=== PATIENT | male | born 1980 | race Hispanic/Latino ===

== ENCOUNTER 2023-06-28 10:07 | Emergency (ER) | payer SELFPAY ==
[~2023-06-28] VITALS: Ht 157.5 cm; Wt 57.0 kg
[2023-06-28 10:16] VITALS: BP 135/83
[2023-06-28 10:30] VITALS: BP 120/76
[2023-06-28] MEDS ORDERED: BACTRIM DS1 TAB PO (10:40)
[2023-06-28] MEDS ORDERED: MOTRIN800 MG PO (10:41)
[2023-06-28 10:46] VITALS: BP 116/65
== END 2023-06-28 10:54 | disposition home or self-care (01) | DRG 607 ==
LOC: ED 10:07
DX: L60.0 Ingrowing nail (principal); L03.032 Cellulitis of left toe